=== PATIENT | male | born 1960 | race Caucasian/White ===

== ENCOUNTER 2018-09-29 09:09 | Day surgery (SDC) | payer BC ==
[~2018-09-29 09:09] MED LIST: ACETAMINOPHEN 1,000 MG/100 ML BTL IV ONE; CEFAZOLIN 2 Gram 2 GM/50 ML BAG IVPB ONE
[2018-09-29] MEDS ORDERED: SEVOFLURANE 250 ML INH ONE (09:10)
[2018-09-29] MEDS ORDERED: BUPIVACAINE 0.5% W/EPI MPF 30 ML VIAL IVP ONE (09:10)
[2018-09-29] MEDS ORDERED: MIDAZOLAM HCL 2MG/2ML VIAL IV ONE (09:10)
[2018-09-29] MEDS ORDERED: SUFENTANIL CITRATE 50 MCG/ML AMPUL IV ONE (09:10)
[2018-09-29] MEDS ORDERED: LIDOCAINE 2% MDV (20MG/ML) 20ML VIAL IV ONE (09:10)
[2018-09-29] MEDS ORDERED: DEXAMETHASONE 4 MG/ML 1ML VIAL IVP ONE (09:10)
[2018-09-29] MEDS ORDERED: PROPOFOL 10 MG/ML VIAL IV ONE (09:10)
[2018-09-29] MEDS ORDERED: ONDANSETRON HCL IV 4 MG/2 ML VIAL IVP ONE (09:10)
[2018-09-29] MEDS ORDERED: FENTANYL PF 100MCG/2ML VIAL IV ONE (09:10)
[2018-09-29] MEDS ORDERED: ROPIVACAINE HCL (NAROPIN) /PF 5MG/ML 20ML VIAL IV ONE (09:10)
[2018-09-29] MEDS ORDERED: VANCOMYCIN HCL 1 GM VIAL IVPB ONE (09:10)
[2018-09-29 11:50] LABS: SPECIMEN SOURCE WOUND
--- NOTE | 2018-09-30 09:20 | Operative Note ---
DATE OF SURGERY: 09/29/2018 PREOPERATIVE DIAGNOSIS: Displaced fracture of right distal fibula at the lateral malleolus with deltoid tear. POSTOPERATIVE DIAGNOSIS: Displaced fracture of right distal fibula at the lateral malleolus with deltoid tear. OPERATION: Open reduction and internal fixation of right distal fibula at the lateral malleolus with [employer] EVOS plate 27 x 3.5 lateral distal locking plate 5 hole. Staff Surgeon: Yariel Humphreys MD Anesthesia: General. Preparation: Chloraprep. Individual Considerations: None. PROCEDURE: The patient was taken to the operating room and placed supine on the operating room table. He had a successful induction with general anesthetic. His right lower extremity was prepped and draped in the usual fashion. The patient had an incision along the distal fibular from the tip proximally I would say about 8 cm. Sharp dissection carried down through skin and subcutaneous tissue. Small veins were coagulated with a Bovie. Once I got down to the bone, the patient had a large fluctuant area anteriorly. It turned out to be just a hematoma and necrotic fat. This all drained out. I did check a stat Gram stain to make sure there was no purulence and there was no bacteria seen. I also did a culture just to be safe but again, it looked like blood and necrotic fat and clinically he was not infected. After irrigating this all out, I elevated the limb, put the tourniquet up to 250 mmHg. The patient had a short oblique fracture of the distal fibula at the level of the syndesmosis with an intact syndesmosis. The fibular was externally rotated. Clot and debris were irrigated out of the fracture site. It was held anatomically reduced with clamps. In a lag fashion, I placed a single 2.7 cortical screw from anterior to posterior to stabilize this. I then fashioned a 5-hole EVOS fibular locking plate, held it provisionally with clamps. I was able to fill 5 distal 2.7 locking screws with 4 proximal 3.5 cortical screws. This gave excellent stable osteosynthesis. Fluoroscopy showed that the fracture extension was anatomic and the talus was not reduced in the mortise. After irrigation, tourniquet was let down and hemostasis was obtained basically just with compression. I had a good hemostasis. Irrigated out, closed the periosteum and subcu with layers of 2-0 plus Vicryl. Skin was closed with fei. I infiltrated the entire incision and syndesmosis and periosteum with 0.5% Marcaine with epinephrine. A sterile bulky compressive soft cast was applied and equalizer boot. He tolerated procedure well. Needle and sponge counts were correct. Estimated blood loss was minimal. The patient was taken back to recovery in good condition. There were no complications. NEFTALY
== END 2018-09-29 13:50 | disposition home or self-care (01) ==
LOC: SUR 09:09
PROVIDERS: ATTEND Orthopaedic Surgery
DX: S82.61XA Displaced fracture of lateral malleolus of right fibula, initial encounter for closed fracture (principal); S93.421A Sprain of deltoid ligament of right ankle, initial encounter; M10.9 Gout, unspecified
CPT/HCPCS: 76000; 76942; 87205; C1713; J2405